=== PATIENT | female | born 1980 | race Caucasian/White ===

== ENCOUNTER → 2016-08-19 | Outpatient (CLI) | payer BC ==
[~2016-08-19] MED LIST: BACTRIM DS TABL1 TA1 PO; BENTYL10 MG PO; CLINDESSE5.8 GM TOP; KEFLEX500 MG PO; LORTAB 5/500 TA1 TA1 PO; NO MEDICATIONS; NORCO 5/325 TAB1 TAB; PHENERGAN25 MG PO; PRILOSEC40 MG PO; ROBAXIN500 MG PO; VIBRAMYCIN100 M1 PO
--- NOTE | ~2016-08-19 | CT2 ---
[facility] RADIOLOGY TEXT RESULTS PATIENT: KRISTINE CARO LOCATION: [facility] : [birth year] UNIT #: [id number] AGE: [address]: Hair Ndiaye MD SEX: F ORDER DR: [id number] [facility]. [place], [place] [address] [id number] O MR#: [id number] [facility] #: [id number] NAME: KRISTINE CARO : 1980 SEX: F STUDY DATE/TIME: 08/19/2016 16:49 UNIT: [facility] ROOM: STUDY DESCRIPTION: CT Abd and Pelv W Cont Attending Physician: Hair Ndiaye M.D. Referring Physician: Hair Ndiaye M.D. Ordering Physician: Hair Ndiaye M.D. Primary Care Physician: Hair Ndiaye M.D. MEDICAL IMAGING REPORT This report is preliminary unless electronic signature is present EXAM CT abdomen and pelvis INDICATION Left lower quadrant abdominal pain and mid abdominal pain. Nausea. Diverticulosis. TECHNIQUE CT of the abdomen and pelvis with p.o. and IV contrast (100 mL Isovue-370 IV contrast). Coronal and sagittal reconstructions were obtained. This CT examination was performed with one or more of the following radiation dose reduction techniques: automatic exposure control, adjustment of mA and/or kV according to patient size, and iterative reconstruction. COMPARISON CT abdomen and pelvis dated 03/09/2014 and 10/27/2011. FINDINGS ABDOMEN: There is mild acute diverticulitis at the junction of the descending colon and sigmoid colon. No evidence of abscess or perforation. There is mild left-sided diverticulosis. The appendix is normal. No small bowel obstruction. The solid abdominal organs enhance normally. The gallbladder is surgically absent. No pelvic mass. There is an IUD in the uterus. Ovaries are within normal limits. Pelvis: There is no enlarged pelvic or inguinal lymph nodes. No acute osseous abnormalities. [facility] RADIOLOGY TEXT RESULTS PATIENT: KRISTINE CARO LOCATION: [facility] : [birth year] UNIT #: [id number] AGE: [address]: Hair Ndiaye MD SEX: F ORDER DR: IMPRESSION Mild colonic diverticulitis. No abscess or perforation. Results were called to Dr. Hair Ndiaye at 17:13 on 08/19/2016. Dictated by... Denilson Pantoja M.D. THIS IS AN ELECTRONICALLY VERIFIED REPORT Denilson Pantoja M.D. at 08/20/2016 10:48 AM ALISHA/danielle TD: 08/20/2016 07:47 JOB #: [id number] MEDICAL IMAGING REPORT Page 1 of 1 COPY
== END | disposition home or self-care (01) ==
LOC: CCAT 15:00
DX: G89.18 Other acute postprocedural pain (principal); K57.32 Diverticulitis of large intestine without perforation or abscess without bleeding
CPT/HCPCS: 74177; Q9967